=== PATIENT | female | born 1965 | race African-American/Black ===

== ENCOUNTER 2024-05-16 07:02 | Day surgery (SDC) | payer OTHER ==
[~2024-05-16] VITALS: Ht 170.2 cm; Wt 79.0 kg
[~2024-05-16 07:02] MED LIST: CALCIUM 600+D1 EAC5 PO; CYPROHEPTADINE H4 MG PO; IBLOOD GLUCOSE TEST STRIP 1 EA TEST VI PRN; LACTATED RINGER'S 1,000 ML IV SCH; LIDOCAINE HCL 1% 5 ML SDV INJ ONE; MIDAZOLAM HCL 5 MG/5 ML VIAL IV PRN; NORVASC5 MG PO; NUJO60 ML TP; PROPRANOLOL HCL20 MG PO; RED YEAST RICE55 MG PO; VITAMIN D325 MC2 PO; fentaNYL citrate 100 MCG/2 ML VIAL IV PRN
[2024-05-16 07:25] VITALS: BP 132/89
[2024-05-16] MEDS ORDERED: MIDAZOLAM HCL 5 MG/5 ML VIAL ONE (07:52)
[2024-05-16] MEDS ORDERED: fentaNYL citrate 100 MCG/2 ML VIAL ONE (07:52)
--- NOTE | 2024-05-16 08:40 | NUR ---
05/16/24 0840 Meredith Rubio 0821-PATIENT ARRIVED TO PACU ON 2L NC RR EVEN. REACTIVE TO VERBAL STIMULI OPENS EYES AND REMAINS VERY DROWSY DOZES BACK TO SLEEP. PATIENT LAYING LEFT LATERAL ABDOMEN SOFT. IVF INFUSING.
[2024-05-16 09:16] VITALS: BP 129/74
--- NOTE | 2024-05-16 15:55 | OR ---
[facility] [address], [place] [address] Signed DATE OF OPERATION: 05/16/2024 SURGEON: Michael Dailey MD PREOPERATIVE DIAGNOSIS: Screening colonoscopy. POSTOPERATIVE DIAGNOSES: 1. Minimal to moderate sigmoid diverticulosis. 2. Minimal internal hemorrhoids. PROCEDURE: Colonoscopy without biopsies. ESTIMATED BLOOD LOSS: None. INDICATIONS: Mary is a 59-year-old female, originally from [facility]. She presents for her initial screening colonoscopy. She tells me I helped her with his colonoscopy. She is familiar with the idea of a bowel prep. In addition, her son happens to be one of our medical assistants. She tells me she has no lower GI complaints. She does not know her father. She has no knowledge of any colon polyps or cancer on her mother side of the family. In the office, I gave her a pamphlet on colonoscopy. We reviewed the nature of the test. There is risk including, but not limited to gas bloating, crampy abdominal pain, bleeding, perforation requiring surgery, and missed diagnosis. We also reviewed the written instructions for the bowel prep line by line. It is the same prep that her took. We also reviewed the need for IV conscious sedation. She understands an adult person has to take her home afterwards. She had expressed understanding and wished to proceed. PROCEDURE IN DETAIL: Mary was taken into our endoscopy suite and placed in the left lateral decubitus position. She was given a total of 5 mg of Versed and 125 mcg of fentanyl to cover the case. A digital rectal exam was performed. She had no external hemorrhoids. She had good sphincter tone. There were no masses. The adult colonoscope was introduced and advanced under direct visualization of the camera without difficulty. We needed just a little abdominal compression to get the scope down and into the cecum itself. Her prep was quite excellent. We could easily see the appendiceal orifice and the ileocecal valve. The scope was then slowly withdrawn. We took pictures throughout for Electronically Signed By: MICHAEL DAILEY MD 05/16/24 1555 PATIENT NAME: ELIZA LIZ OPERATIVE REPORT DATE OF : 61 REPORT #: [id number] PHYSICIAN: MICHAEL DAILEY MD PCP: LOGAN MURILLO PAC REPORT IS CONFIDENTIAL AND NOT TO BE RELEASED WITHOUT AUTHORIZATION [facility] [address] [place] [id number] Signed photodocumentation. She had just a few diverticula in her sigmoid colon. They were moderate in size, few in number and scattered about. The rectum was unremarkable. Upon retroflexion of the scope, she has very minimal internal hemorrhoid tissue. After this, the gas was suctioned out and the colonoscope removed. Mary tolerated the procedure quite well. RECOMMENDATIONS: Mary can follow up in 10 years for repeat screening colonoscopy. MD JANIYA Acosta/MANDYL /[id number] cc: NADEGE Tovar MD Copies: MICHAEL DAILEY MD ~ Electronically Signed By: MICHAEL DAILEY MD 05/16/24 1555 PATIENT NAME: ELIZA LIZ OPERATIVE REPORT DATE OF : 61 REPORT #: [id number] PHYSICIAN: MICHAEL DAILEY MD PCP: LOGAN MURILLO PAC REPORT IS CONFIDENTIAL AND NOT TO BE RELEASED WITHOUT AUTHORIZATION
== END 2024-05-16 09:25 | disposition home or self-care (01) ==
LOC: DS 07:02
PROVIDERS: ATTEND Colon & Rectal Surgery
PROC: 0DJD8ZZ Inspection of Lower Intestinal Tract, Via Natural or Artificial Opening Endoscopic (ICD-10-PCS; principal; 2024-05-16 08:15)
DX: Z12.11 Encounter for screening for malignant neoplasm of colon (principal); K57.30 Diverticulosis of large intestine without perforation or abscess without bleeding; K64.8 Other hemorrhoids; E78.5 Hyperlipidemia, unspecified; I10 Essential (primary) hypertension; Z79.899 Other long term (current) drug therapy
CPT/HCPCS: 99153; G0500; J2250; J3010